=== PATIENT | female | born 1960 | race Caucasian/White ===

== ENCOUNTER → 2019-03-10 08:21 | Outpatient (CLI) | payer BC, OTHER, SELFPAY ==
--- NOTE | 2019-03-10 | DI.MG.S_ITS ---
BILATERAL DIGITAL SCREENING MAMMOGRAM 3D/2D WITH CAD WITH AUGMENTATION: 03/10/2019 CLINICAL: Routine screening. Comparison is made to exams dated: 02/10/2018 mammogram, 01/31/2017 mammogram, and 01/12/2016 mammogram - [facility]. There are scattered fibroglandular elements in both breasts. Current study was also evaluated with a Computer Aided Detection (CAD) system. Bilateral breast implants are stable. No significant masses, calcifications, or other findings are seen in either breast. There has been no significant interval change. IMPRESSION: NEGATIVE There is no mammographic evidence of malignancy. A 1 year screening mammogram is recommended. This exam was interpreted at Station ID: [id number]. NOTE: For mammograms, a report in lay terms will be sent to the patient. Approximately 15% of breast malignancies will not be visualized mammographically. In the management of a palpable breast mass, a negative mammogram must not discourage biopsy of a clinically suspicious lesion. Electronically Signed By: Kate loo/sravanthi:03/10/2019 09:21:48 letter sent: Normal Exam ACR BI-RADS Category 1: Negative [id number]
== END ==
PROVIDERS: PCP Family Medicine; Visit Provider Family Medicine
DX: Z12.31 Encounter for screening mammogram for malignant neoplasm of breast (principal)
CPT/HCPCS: 77063; 77067

== ENCOUNTER 2019-04-29 07:19 | Emergency (ER) | payer BC, OTHER, SELFPAY ==
[2019-04-29 07:25] VITALS: BP 139/75; PULSE 74; RESP 16; TEMP 36.4; O2SAT 99; BMI 23.3
--- NOTE | 2019-04-29 07:26 | ED.UPPEXIN ---
HPI - Extremity Injury (Upper) General Chief Complaint: Extremity Injury, Upper Stated Complaint: fell and heard something pop in right wrist Time Seen by Provider: 04/29/19 07:26 Source: patient Mode of arrival: ambulatory Limitations: no limitations History of Present Illness HPI narrative: 58-year-old female brought herself to the emergency department for right wrist pain. Patient was walking up an incline she fell backwards on an outstretched hand. She cut herself with the right hand. She had pain felt a little pop. She has continued to have pain at the wrist itself. No numbness, no tingling or weakness. Patient denies any other injuries. Patient states this happened this morning. She denies any prior surgical history. Primary care's duty she ate. She does not smoke tobacco, occasional alcohol, none today, no illicit. Related Data Previous Rx's Medication Instructions Recorded chlorhexidine gluconate [Paroex 10 ml PO QID #473 10/29/17 Oral Rinse] ibuprofen 200 mg PO SEE INSTRUCTIONS #1 tab 10/29/17 penicillin V potassium 500 mg PO TID #42 tab 10/29/17 Allergies Allergy/AdvReac Type Severity Reaction Status Date / Time No Known Drug Allergies Allergy Verified 04/29/19 07:25 Review of Systems Musculoskeletal Reports arthralgias (r wrist), Denies muscle weakness, Denies numbness and Denies tingling Integumentary/Breasts Reports erythema, Reports skin swelling, Denies unusual bruising and Denies wounds Neurologic Denies numbness and Denies tingling PFSH Social History Smoking Status: Never smoker Social History (Updated 04/29/19 @ 07:34 by Sonia Hernandez DO) Smoking Status: Never smoker alcohol intake: current substance use type: does not use Exam Narrative Exam Narrative: GENERAL: Alert and oriented x three, well-nourished, well-appearing female in mild distress HEENT: Head normocephalic, atraumatic, EOMI, pupils reactive, face symmetric, moist mucous membranes NECK: Supple, full range of motion CARDIOVASCULAR: Regular rate and rhythm without murmurs, rubs or gallops. RESPIRATORY: Breath sounds equal bilaterally, no wheezes rales or rhonchi. ABDOMEN: Soft, nontender. Normoactive bowel sounds all 4 quadrants. No guarding or rebound, rigidity, no mass : No CVA tenderness BACK: No cervical, thoracic or lumbar vertebral point tenderness. Patient has normal range of motion. Patient's gait is normal. Muscle strength is 5/5 in upper and lower extremities EXTREMITIES: Normal range of motion of the right upper extremity except for the wrist, patient has tenderness over the wrist itself with ulnar and radial side. There is some slight swelling on the radial side. Patient does not have any bony tenderness of the fingers or metacarpals, no tenderness of the proximal forearm, elbow, humerus or shoulder. Patient has normal sensation throughout 2+ radial pulse. Cap refills less than 2 seconds in all 5 fingers with normal sensation in move, no clubbing. Neurovascularly intact NEUROLOGICAL: Cranial nerves II through XII grossly intact. Moving all extremities SKIN: Warm, dry, no petechiae, no rashes or lesions. Initial Vital Signs Initial Vital Signs: Vital Signs Temperature 97.6 F 04/29/19 07:25 Pulse Rate 74 04/29/19 07:25 Respiratory Rate 16 04/29/19 07:25 Blood Pressure 139/75 04/29/19 07:25 Pulse Oximetry 99 04/29/19 07:25 Course Orders Ordered: ED Orders 04/29/19 07:26 XR wrist RT min 3V Stat Vital Signs - 8 hr 04/29/19 07:25 Temperature 97.6 F Pulse Rate 74 Respiratory Rate 16 Blood Pressure 139/75 Pulse Oximetry 99 MDM - Extremity Injury (Upper) Imaging Data Right wrist x-ray: Radiologist's impression: [address] [address] XRay Report Signed Patient: Dee House [facility]#: [id number] : 1960Acct:[id number] Age/Sex: 58 / FDate of Service: 04/29/19 Loc: ED Accession Number: [id number] Procedure: XR wrist RT min 3V Ordering Provider: Sonia Hernandez D.O. PROCEDURE: XR WRIST RT MIN 3V INDICATIONS: right wrist pain, fall FOOSH TECHNIQUE: 4 views of the wrist were acquired. COMPARISON: None. FINDINGS: Bones: No fractures or dislocations. No suspicious bony lesions. Scaphoid view: Scaphoid appears intact. Soft tissues: No suspicious soft tissue calcifications. IMPRESSION: No fracture or dislocation. If clinical symptoms persist or clinical suspicion for pathology is high, a repeat examination in 7-10 days, or advanced imaging such as CT or MRI is suggested for further evaluation. Dictated by: Sebas Gill M.D. on 04/29/2019 at 8:01 Approved by: Sebas Gill M.D. on 04/29/2019 at 8:05 [facility] Narrative Medical decision making narrative: Patient has some tenderness over the distal radius, she has a little bit of swelling. X-ray was negative. Patient was placed in Velcro splint and asked to follow up if she continues to have pain. Discussed she likely just has a sprain but if her symptoms are not resolving she needs repeat imaging in 7-10 days to evaluate for any fracture. Patient is comfortable with the plan. Discussed she can do ibuprofen and/or Tylenol is patent. And to allow pain to dictate her activity. Discharge Plan Departure Patient Disposition: Home Clinical Impression: Right wrist sprain Qualifiers: Encounter type: initial encounter Qualified Code(s): S63.501A - Unspecified sprain of right wrist, initial encounter Instructions: DI for Wrist Sprain Activity Restrictions/Additional Instructions: Follow up with your primary care or orthopedic surgeon in the next 7-10 days for recheck if you are continuing to have symptoms. Your x-ray does not show a clear fracture today, if you continued have pain I would recommend repeat imaging in 7-10 days. Sometimes there can be small fractures that are not visualized until the bone starts to heal. If your symptoms are totally resolved you do not have to continue to wear the splint. You may take ibuprofen up to 800 mg every 8 hours as needed for pain, he may take Tylenol with or instead of up to a 1000 mg every 8 hours. Splint Care: Keep splint clean and dry. Elevated affected body part to decrease swelling. OK to use ice pack on the affected body part. Use for 15-20 minutes each time, for 5-6x per day. If you develop worsening pain, numbness, tingling, discoloration of the affected body part, loosen the splint by loosening the HILARY wrap, and either see your doctor for an urgent re-assessment, or return to the Emergency Department. Return to the Emergency Department for any new or worsening symptoms. Prescriptions: No Action penicillin V potassium 500 MG tablet 500 mg PO TID Qty: 42 RF: 0 ibuprofen 200 MG tablet 200 mg PO SEE INSTRUCTIONS Qty: 1 RF: 0 chlorhexidine gluconate [Paroex Oral Rinse] 473 ML mouthwash 10 ml PO QID Qty: 473 RF: 0 Referrals: Clement Perkins MD [Physician] - Karis Murray DO [Primary Care Provider] -
--- NOTE | 2019-04-29 07:29 | PC.NURSE ---
Pt given ice pack. Denies need for pain medications at this time.
--- NOTE | 2019-04-29 07:31 | ED_ITS ---
HPI - Extremity Injury (Upper) General Chief Complaint: Extremity Injury, Upper Stated Complaint: fell and heard something pop in right wrist Time Seen by Provider: 04/29/19 07:26 Source: patient Mode of arrival: ambulatory Limitations: no limitations History of Present Illness HPI narrative: 58-year-old female brought herself to the emergency department for right wrist pain. Patient was walking up an incline she fell backwards on an outstretched hand. She cut herself with the right hand. She had pain felt a little pop. She has continued to have pain at the wrist itself. No numbness, no tingling or weakness. Patient denies any other injuries. Patient states this happened this morning. She denies any prior surgical history. Primary care's duty she ate. She does not smoke tobacco, occasional alcohol, none today, no illicit. Related Data Previous Rx's Medication Instructions Recorded chlorhexidine gluconate [Paroex 10 ml PO QID #473 10/29/17 Oral Rinse] ibuprofen 200 mg PO SEE INSTRUCTIONS #1 tab 10/29/17 penicillin V potassium 500 mg PO TID #42 tab 10/29/17 Allergies Allergy/AdvReac Type Severity Reaction Status Date / Time No Known Drug Allergies Allergy Verified 04/29/19 07:25 Review of Systems Musculoskeletal Reports arthralgias (r wrist), Denies muscle weakness, Denies numbness and Denies tingling Integumentary/Breasts Reports erythema, Reports skin swelling, Denies unusual bruising and Denies wou nds Neurologic Denies numbness and Denies tingling PFSH Social History Smoking Status: Never smoker Social History (Updated 04/29/19 @ 07:34 by Sonia Hernandez DO) Smoking Status: Never smoker alcohol intake: current substance use type: does not use Exam Narrative Exam Narrative: GENERAL: Alert and oriented x three, well-nourished, well- appearing female in mild distress HEENT: Head normocephalic, atraumatic, EOMI, pupils reactive, face symmetric, moist mucous membranes NECK: Supple, full range of motion CARDIOVASCULAR: Regular rate and rhythm without murmurs, rubs or gallops. RESPIRATORY: Breath sounds equal bilaterally, no wheezes rales or rhonchi. ABDOMEN: Soft, nontender. Normoactive bowel sounds all 4 quadrants. No guarding or rebound, rigidity, no mass : No CVA tenderness BACK: No cervical, thoracic or lumbar vertebral point tenderness. Patient has normal range of motion. Patient's gait is normal. Muscle strength is 5/5 in upper and lower extremities EXTREMITIES: Normal range of motion of the right upper extremity except for the wrist, patient has tenderness over the wrist itself with ulnar and radial side. There is some slight swelling on the radial side. Patient does not have any bony tenderness of the fingers or metacarpals, no tenderness of the proximal forearm, elbow, humerus or shoulder. Patient has normal sensation throughout 2+ radial pulse. Cap refills less than 2 seconds in all 5 fingers with normal sensation in move, no clubbing. Neurovascularly intact NEUROLOGICAL: Cranial nerves II through XII grossly intact. Moving all extremities SKIN: Warm, dry, no petechiae, no rashes or lesions. Initial Vital Signs Initial Vital Signs: Vital Signs Temperature 97.6 F 04/29/19 07:25 Pulse Rate 74 04/29/19 07:25 Respiratory Rate 16 04/29/19 07:25 Blood Pressure 139/75 04/29/19 07:25 Pulse Oximetry 99 04/29/19 07:25 Course Orders Ordered: ED Orders 04/29/19 07:26 XR wrist RT min 3V Stat Vital Signs - 8 hr 04/29/19 07:25 Temperature 97.6 F Pulse Rate 74 Respiratory Rate 16 Blood Pressure 139/75 Pulse Oximetry 99 MDM - Extremity Injury (Upper) Imaging Data Right wrist x-ray: Radiologist's impression: [address] [address] XRay Report Signed Patient: Dee House [facility]#: [id number] : 1960Acct:[id number] Age/Sex: 58 / FDate of Service: 04/29/19 Loc: ED Accession Number: [id number] Procedure: XR wrist RT min 3V Ordering Provider: Sonia Hernandez D.O. PROCEDURE: XR WRIST RT MIN 3V INDICATIONS: right wrist pain, fall FOOSH TECHNIQUE: 4 views of the wrist were acquired. COMPARISON: None. FINDINGS: Bones: No fractures or dislocations. No suspicious bony lesions. Scaphoid view: Scaphoid appears intact. Soft tissues: No suspicious soft tissue calcifications. IMPRESSION: No fracture or dislocation. If clinical symptoms persist or clinical suspicion for pathology is high, a repeat examination in 7-10 days, or advanced imaging such as CT or MRI is suggested for further evaluation. Dictated by: Sebas Gill M.D. on 04/29/2019 at 8:01 Approved by: Sebas Gill M.D. on 04/29/2019 at 8:05 [facility] Narrative Medical decision making narrative: Patient has some tenderness over the distal radius, she has a little bit of swelling. X-ray was negative. Patient was placed in Velcro splint and asked to follow up if she continues to have pain. Discussed she likely just has a sprain but if her symptoms are not resolving she needs repeat imaging in 7-10 days to evaluate for any fracture. Patient is comfortable with the plan. Discussed she can do ibuprofen and/or Tylenol is patent. And to allow pain to dictate her activity. Discharge Plan Departure Patient Disposition: Home Clinical Impression: Right wrist sprain Qualifiers: Encounter type: initial encounter Qualified Code(s): S63.501A - Unspecified sprain of right wrist, initial encounter Instructions: DI for Wrist Sprain Activity Restrictions/Additional Instructions: Follow up with your primary care or orthopedic surgeon in the next 7-10 days for recheck if you are continuing to have symptoms. Your x-ray does not show a clear fracture today, if you continued have pain I would recommend repeat imaging in 7-10 days. Sometimes there can be small fractures that are not visualized until the bone starts to heal. If your symptoms are totally resolved you do not have to continue to wear the splint. You may take ibuprofen up to 800 mg every 8 hours as needed for pain, he may take Tylenol with or instead of up to a 1000 mg every 8 hours. Splint Care: Keep splint clean and dry. Elevated affected body part to decrease swelling. OK to use ice pack on the affected body part. Use for 15-20 minutes each time, for 5-6x per day. If you develop worsening pain, numbness, tingling, discoloration of the affected body part, loosen the splint by loosening the HILARY wrap, and either see your doctor for an urgent re-assessment, or return to the Emergency Department. Return to the Emergency Department for any new or worsening symptoms. Prescriptions: No Action penicillin V potassium 500 MG tablet 500 mg PO TID Qty: 42 RF: 0 ibuprofen 200 MG tablet 200 mg PO SEE INSTRUCTIONS Qty: 1 RF: 0 chlorhexidine gluconate [Paroex Oral Rinse] 473 ML mouthwash 10 ml PO QID Qty: 473 RF: 0 Referrals: Clement Perkins MD [Physician] - Karis Murray DO [Primary Care Provider] -
== END 2019-04-29 08:14 | disposition home or self-care (01) ==
PROVIDERS: Emergency Provider Emergency Medicine; PCP Family Medicine
DX: S63.501A Unspecified sprain of right wrist, initial encounter (principal); W19.XXXA Unspecified fall, initial encounter
CPT/HCPCS: 29260; 73110; 99282; 99283

== ENCOUNTER → 2019-05-07 09:28 | Outpatient (CLI) | payer BC, OTHER, SELFPAY ==
--- NOTE | 2019-05-07 | DI.RAD.S_ITS ---
PROCEDURE: XR WRIST RT MIN 3V INDICATIONS: FOLLOW UP XRAY ON RIGHT WRIST TECHNIQUE: 4 views of the wrist were acquired. COMPARISON: [facility], CR, XR WRIST RT MIN 3V, 04/29/2019, 7:24. FINDINGS: Bones: No displaced fractures or articular dislocations. No suspicious bony lesions. With reference to the initial set of plain films 04/29/19 there has been a slight interval change in the appearance of the dorsal aspect of the distal radius, slightly irregular, slightly heterogeneous along the trabecular margins to the degree that a nondisplaced healing fracture is suspected. Scaphoid view: No trauma to the scaphoid is found. Soft tissues: No suspicious soft tissue calcifications. IMPRESSION: From the original trauma plain films 04/29/19 the dorsal aspect of the distal radius appears slightly irregular but not depressed or displaced in any fashion. Therefore, a slight fracture of the trabecula with healing of bone bruising is suspected based on the imaging findings changes, but no displaced fracture is present. MR scanning provides the most accurate method for detecting hidden fractures and bone bruising. However, given the absence of any malalignment proceeding to MR scanning is not recommended unless clinically indicated otherwise. For example, ligamentous injury is undetectable with MR scanning but would not be visible by plain film imaging. Note: Findings were called to the ordering health care providers office. This report will be also faxed immediately upon its completion at time of this dictation. Dictated by: Hai Farr M.D. on 05/07/2019 at 10:27 Approved by: Hai Farr M.D. on 05/07/2019 at 10:38
== END ==
PROVIDERS: PCP Family Medicine; Visit Provider Family Medicine
DX: M25.531 Pain in right wrist (principal)
CPT/HCPCS: 73110

== ENCOUNTER → 2020-12-19 16:00 | Outpatient (CLI) | payer OTHER, SELFPAY ==
--- NOTE | 2020-12-19 | DI.MG.S_ITS ---
BILATERAL DIGITAL SCREENING MAMMOGRAM 3D/2D WITH CAD WITH AUGMENTATION: 12/19/2020 CLINICAL: Routine screening. Comparison is made to exams dated: 03/10/2019 mammogram, 02/10/2018 mammogram, and 01/31/2017 mammogram - [facility]. There are scattered fibroglandular elements in both breasts. Current study was also evaluated with a Computer Aided Detection (CAD) system. Bilateral breast implants are stable. No significant masses, calcifications, or other findings are seen in either breast. There has been no significant interval change. IMPRESSION: NEGATIVE There is no mammographic evidence of malignancy. A 1 year screening mammogram is recommended. This exam was interpreted at Station ID: [id number]. NOTE: For mammograms, a report in lay terms will be sent to the patient. Approximately 15% of breast malignancies will not be visualized mammographically. In the management of a palpable breast mass, a negative mammogram must not discourage biopsy of a clinically suspicious lesion. Electronically Signed By: Lm De M.D. at/sravanthi:12/19/2020 18:21:17 copy to: Jhoan Leonard M.D., [facility], ph: [phone], fax: [phone] letter sent: Normal Exam ACR BI-RADS Category 1: Negative 3341F
== END ==
PROVIDERS: PCP Registered Nurse Diabetes Educator; Referring Provider Family Medicine; Visit Provider Family Medicine
DX: Z12.31 Encounter for screening mammogram for malignant neoplasm of breast (principal)
CPT/HCPCS: 77063; 77067

== ENCOUNTER → 2021-01-05 11:02 | Outpatient (CLI) | payer OTHER, SELFPAY | PROVIDERS: PCP Registered Nurse Diabetes Educator; Visit Provider Physician Assistant | DX: N34.3 Urethral syndrome, unspecified (principal) | CPT/HCPCS: 87077; 87086; 87186 ==

== ENCOUNTER → 2021-01-13 08:16 | Outpatient (CLI) | payer OTHER, SELFPAY ==
[2021-01-13 08:52] LABS: Hematocrit 38.3 % (36-46); Hemoglobin 12.9 g/dL (12.0-16.0); Mean Corpuscular HGB Conc 33.7 % (30-36); Mean Corpuscular Volume 94.9 fL (80-100); Platelet Count 236 X10^3/uL (150-400); Red Blood Cell Count 4.04 X10^6/uL (4.0-5.2); Red Cell Distribution Width 12.3 % (11.6-14.8); White Blood Cell Count 4.8 X10^3/uL (4.5-11.0)
[2021-01-13 09:09] LABS: Alanine Aminotransferase 27 IU/L (<35); Albumin 4.5 g/dL (3.5-5.0); Albumin Globulin Ratio 1.7 (1.0-2.8); Alkaline Phosphatase 56 U/L (38-126); Aspartate Aminotransferase 37 IU/L (14-36); BUN Creatinine Ratio 15.6 (6-22); Bilirubin Total 0.3 mg/dL (0.2-1.3); Blood Urea Nitrogen 12 mg/dL (7-17); Calcium 9.5 mg/dL (8.4-10.2); Carbon Dioxide 29 mmol/L (22-32); Chloride 96 mmol/L (98-107); Cholesterol 185 mg/dL (140-199); Estimated Glomerular Filt Rate > 60.0 mL/min (>60); Globulin 2.7 g/dL (1.7-4.1); Glucose 94 mg/dL (80-110); HDL Cholesterol 97 mg/dL (40-60); HEMOLYSIS < 15 (0-50); LDL Cholesterol Calculated 80 mg/dL (<100); Potassium 4.3 mmol/L (3.4-5.1); Sodium 131 mmol/L (137-145); Total Protein 7.2 g/dL (6.3-8.2); Triglycerides 39 mg/dL (35-150)
[2021-01-13 09:37] LABS: TSH w/ Reflex to FT4 2.17 uIU/mL (0.47-4.68)
== END ==
PROVIDERS: PCP Registered Nurse Diabetes Educator; Referring Provider Registered Nurse Diabetes Educator; Visit Provider Registered Nurse Diabetes Educator
DX: Z00.00 Encounter for general adult medical examination without abnormal findings (principal); R03.0 Elevated blood-pressure reading, without diagnosis of hypertension
CPT/HCPCS: 36415; 80053; 80061; 84443; 85027

== ENCOUNTER → 2021-01-15 13:09 | Outpatient (CLI) | payer OTHER, SELFPAY ==
[2021-01-15 13:47] LABS: BUN Creatinine Ratio 23.3 (6-22); Blood Urea Nitrogen 17 mg/dL (7-17); Calcium 9.7 mg/dL (8.4-10.2); Carbon Dioxide 30 mmol/L (22-32); Chloride 97 mmol/L (98-107); Estimated Glomerular Filt Rate > 60.0 mL/min (>60); Glucose 94 mg/dL (80-110); HEMOLYSIS < 15 (0-50); Sodium 132 mmol/L (137-145)
[2021-01-15 14:42] LABS: Sodium Urine Random 27 mmol/L (30-90)
[2021-01-16 14:21] LABS: Osmolality Urine 189 mOsmol/kg (.)
== END ==
PROVIDERS: PCP Registered Nurse Diabetes Educator; Referring Provider Registered Nurse Diabetes Educator; Visit Provider Registered Nurse Diabetes Educator
DX: E87.1 Hypo-osmolality and hyponatremia (principal)
CPT/HCPCS: 36415; 80048; 83935; 84300

== ENCOUNTER → 2021-02-16 09:05 | Outpatient (CLI) | payer OTHER, SELFPAY ==
[2021-02-16 11:05] LABS: COVID19 -Nasal RAPID Negative (Negative)
== END ==
PROVIDERS: PCP Registered Nurse Diabetes Educator; Visit Provider Surgery
DX: Z20.822 Contact with and (suspected) exposure to COVID-19 (principal)
CPT/HCPCS: 87635; C9803

== ENCOUNTER 2021-02-19 07:48 | Day surgery (SDC) | payer OTHER, SELFPAY ==
[2021-02-19 08:24] VITALS: BP 170/95; PULSE 93; RESP 13; TEMP 37.1; O2SAT 100; BMI 23.6
[2021-02-19] MEDS: LACTATED RINGERS 1,000 ML 200 ML IV (08:30)
--- NOTE | 2021-02-19 09:20 | PM.HP.1 ---
History of Present Illness History of Present Illness Date Patient Seen: 02/19/21 Time Patient Seen: 09:20 Chief complaint: ARC Narrative: The patient presents for colorectal sreening. He had a previously normal colonoscopy 11 years ago. Mother had colon cancer no personal history of intestinal malignancy. On further history denies any recent gastrointestinal symptoms. No nausea, vomiting, abdominal pain, loss of appetite, unexplained weight loss, change in bowel habits, diarrhea, constipation, melena, hematochezia, or bright red blood per rectum. Patient History Medical History Chicken pox (~1964) Elevated blood pressure reading without diagnosis of hypertension Hyponatremia UTI (urinary tract infection) Wears glasses Surgical History Anesthesia History of bilateral breast implants (~1999) Family & Social History Family History Sister Cancer Mother Cancer Social History: household members spouse Tobacco & Substance use: Smoking Status Never smoker alcohol intake current alcohol intake frequency a few times a week Substance Use Type does not use Meds Home Medications and Allergies Home Medications Medication Instructions Recorded Confirmed Type No Known Home Medications 12/26/20 02/19/21 History Allergies Allergy/AdvReac Type Severity Reaction Status Date / Time No Known Drug Allergies Allergy Verified 02/19/21 08:24 Review of Systems Review of Systems ROS: Yes All systems reviewed with the patient and are negative except as otherwise documented Exam Vital Signs (past 8 hours): - 02/19/21 08:24 Temperature 98.8 F Pulse Rate 93 H Respiratory Rate 13 Blood Pressure 170/95 H Pulse Oximetry 100 Oxygen Delivery Method Room Air Narrative Exam Narrative: General-no acute distress, adult woman HEENT-moist mucous membranes, no scleral icterus Neck-supple, no lymphadenopathy Chest- non labored respirations, clear to auscultation bilaterally Cardiac-regular rate no peripheral edema Abdomen-soft, nontender nondistended Extremities-warm, well perfused Neurological-alert and oriented, no focal deficits Assessment & Plan Assessment & Plan narrative: The patient requires colorectal screening and colonoscopy is recommended. Technical details were discussed. Risks, benefits, alternatives explained. Risks including but not limited to myocardial infarction, aspiration, bleeding, pain, missed lesion, incomplete examination, need for further radiographic studies, colonic perforation, and need for major abdominal surgery were discussed. All questions were answered to their satisfaction, and they are in agreement with this plan.
[2021-02-19] MEDS: MIDAZOLAM 5 MG/5 ML VIAL IV (09:25)
[2021-02-19] MEDS: fentaNYL 250 MCG/5 ML INJ IV (09:26)
--- NOTE | 2021-02-19 09:56 | P.OP.ENDO_ITS ---
Operative Date/Time/Diagnoses Date of procedure: 02/19/21 Time of procedure: 09:56 Pre-op diagnosis: family history of colon cancer Post-op diagnosis: same Procedure & Clinicians Study performed: colonoscopy Same procedure as scheduled: Yes Indications: 60-year-old female last colonoscopy 11 years ago family history of colon cancer Surgeon: Jon Vinson Procedure Notes Procedure in detail: Medications: Conscious sedation using 7mg IV midazolam and 250mcg IV of fentanyl The history and physical was performed/updated and the patient is ASA class is 1. The procedure was discussed in detail with the patient. Potential risks complications including infection, bleeding, missed diagnosis, perforation, need for surgery, and were explained. Their questions were answered and informed consent was obtained. Patient was brought to the procedure room and placed standard monitoring equipment. The patient's vital signs were monitored continuously throughout the entire procedure. Prior to starting time-out was performed. The patient was placed in the left lateral recumbent position. Procedural sedation was administered. Examination began with a thorough inspection of the perianal area there was no evidence of fissures, fistulae, external hemorrhoids or cutaneous malignancy. The colonoscopy scope was then placed into the anal canal and was advanced to the cecum, which was identified by the ileocecal valve, the append iceal orifice and the confluence of the taenia. The scope was then slowly withdrawn examining colon thoroughly in all directions, irrigating it of any residual stool. No masses or polyps Grade 1 internal The patient tolerated the procedure well. They will be discharged once criteria are met. The prep was of good/excellent quality. The withdrawl time was 7 minutes. The sedation time [id number]. Specimen(s): none sent Complications: none Impression: Normal colonoscopy Post-procedure Recommendations: Colonscopy in 5 years Disposition: same day surgery
[2021-02-19 10:01] VITALS: BP 99/65; PULSE 68; RESP 16; TEMP 36.7; O2SAT 100
[2021-02-19 10:06] VITALS: BP 109/65; PULSE 81; RESP 16; O2SAT 99
[2021-02-19 10:12] VITALS: BP 106/64; PULSE 70; RESP 12; O2SAT 100
[2021-02-19 10:14] VITALS: BP 104/66; PULSE 62; RESP 16; TEMP 36.8; O2SAT 100
[2021-02-19 10:25] VITALS: BP 112/78; PULSE 68; RESP 14; TEMP 36.9; O2SAT 100
== END 2021-02-19 10:35 | disposition home or self-care (01) ==
PROVIDERS: PCP Registered Nurse Diabetes Educator; Referring Provider Registered Nurse Diabetes Educator; Visit Provider Surgery
PROC: 0DJD8ZZ Inspection of Lower Intestinal Tract, Via Natural or Artificial Opening Endoscopic (ICD-10-PCS; CPT 45378; principal; 2021-02-19 09:15)
DX: Z12.11 Encounter for screening for malignant neoplasm of colon (principal); Z80.0 Family history of malignant neoplasm of digestive organs; K64.0 First degree hemorrhoids
CPT/HCPCS: 45378; 99152; 99153; J2250; J3010

== ENCOUNTER → 2021-12-28 15:09 | Outpatient (CLI) | payer OTHER, SELFPAY ==
--- NOTE | 2021-12-28 | DI.MG.S_ITS ---
BILATERAL DIGITAL SCREENING MAMMOGRAM 3D/2D WITH CAD WITH AUGMENTATION: 12/28/2021 CLINICAL: Patient presents for routine screening. S/P bilateral augmentation. Comparison is made to exams dated: 12/19/2020 mammogram, 03/10/2019 mammogram, and 02/10/2018 mammogram - [facility]. There are scattered fibroglandular elements in both breasts. Current study was also evaluated with a Computer Aided Detection (CAD) system. Bilateral breast implants are stable. No significant masses, calcifications, or other findings are seen in either breast. There has been no significant interval change. IMPRESSION: NEGATIVE There is no mammographic evidence of malignancy. A 1 year screening mammogram is recommended. This exam was interpreted at Station ID: [id number]. NOTE: For mammograms, a report in lay terms will be sent to the patient. Approximately 15% of breast malignancies will not be visualized mammographically. In the management of a palpable breast mass, a negative mammogram must not discourage biopsy of a clinically suspicious lesion. Electronically Signed By: Geoff Johansen M.D., jr/sravanthi:12/28/2021 15:51:04 copy to: Jhoan GUIDRY, [facility], ph: [phone], fax: [phone] letter sent: Normal Exam ACR BI-RADS Category 1: Negative [id number]
== END ==
PROVIDERS: PCP Student in an Organized Health Care Education/Training Program; Referring Provider Student in an Organized Health Care Education/Training Program; Visit Provider Student in an Organized Health Care Education/Training Program
DX: Z12.31 Encounter for screening mammogram for malignant neoplasm of breast (principal); Z98.82 Breast implant status
CPT/HCPCS: 77063; 77067

== ENCOUNTER → 2023-01-17 08:12 | Outpatient (CLI) | payer OTHER, SELFPAY ==
--- NOTE | 2023-01-17 08:13 | DI.MG.S_ITS ---
BILATERAL DIGITAL SCREENING MAMMOGRAM 3D/2D WITH CAD WITH AUGMENTATION: 01/17/2023 CLINICAL: Routine screening. Comparison is made to exams dated: 12/28/2021 mammogram, 12/19/2020 mammogram, and 03/10/2019 mammogram - [facility]. There are scattered areas of fibroglandular density in both breasts (category b / 25%-50% glandular tissue). Current study was also evaluated with a Computer Aided Detection (CAD) system. Bilateral breast implants are stable. No significant masses, calcifications, or other findings are seen in either breast. There has been no significant interval change. IMPRESSION: NEGATIVE There is no mammographic evidence of malignancy. A 1 year screening mammogram is recommended. Based on the Tyrer Cuzick model (a risk assessment model) the patient's lifetime risk is 9.7% and her 10 year risk is 4.2%. According to the ACR, ACS, and NCCN guidelines, an annual breast MRI exam along with mammogram is recommended if the patient's lifetime risk is 20% or greater. This exam was interpreted at Station ID: [id number]. NOTE: For mammograms, a report in lay terms will be sent to the patient. Approximately 15% of breast malignancies will not be visualized mammographically. In the management of a palpable breast mass, a negative mammogram must not discourage biopsy of a clinically suspicious lesion. Electronically Signed By: Gregory soliman/sravanthi:01/17/2023 12:30:30 copy to: Jhoan GUIDRY, [facility], ph: [phone], fax: [phone] letter sent: Normal Exam ACR BI-RADS Category 1: Negative 3341F
== END ==
PROVIDERS: PCP Student in an Organized Health Care Education/Training Program; Referring Provider Student in an Organized Health Care Education/Training Program; Visit Provider Student in an Organized Health Care Education/Training Program
DX: Z12.31 Encounter for screening mammogram for malignant neoplasm of breast (principal)
CPT/HCPCS: 77063; 77067

== ENCOUNTER → 2023-10-31 14:16 | Outpatient (CLI) | payer OTHER, SELFPAY ==
[2023-10-31 17:27] LABS: Add Manual Diff / Slide Review NO; Basophils Absolute Auto 100 /uL (0-100); Basophils Percent Auto 0.8 % (0-2); Eosinophils Absolute Auto 200 /uL (0-450); Eosinophils Percent Auto 2.1 % (2-4); Hematocrit 35.7 % (36-46); Hemoglobin 12.3 g/dL (12.0-16.0); Lymphocytes Absolute Auto 2200 /uL (1100-4500); Lymphocytes Percent Auto 28.5 % (25-40); Mean Corpuscular HGB Conc 34.3 % (30-36); Mean Corpuscular Hemoglobin 32.8 PG (26-34); Mean Corpuscular Volume 95.4 fL (80-100); Monocytes Absolute Auto 500 /uL (0-900); Neutrophils Absolute Auto 4700 /uL (1500-7000); Neutrophils Percent Auto 62.6 % (50-75); Platelet Count 225 X10^3/uL (150-400); Red Blood Cell Count 3.75 X10^6/uL (4.0-5.2); Red Cell Distribution Width 12.9 % (11.6-14.8); White Blood Cell Count 7.6 X10^3/uL (4.5-11.0)
[2023-10-31 17:50] LABS: Alanine Aminotransferase 22 IU/L (<35); Albumin 4.7 g/dL (3.5-5.0); Albumin Globulin Ratio 1.7 (1.0-2.8); Alkaline Phosphatase 53 U/L (38-126); Aspartate Aminotransferase 35 IU/L (14-36); BUN Creatinine Ratio 21.9 (6-22); Bilirubin Total 0.4 mg/dL (0.2-1.3); Blood Urea Nitrogen 16 mg/dL (7-17); Calcium 9.9 mg/dL (8.4-10.2); Carbon Dioxide 31 mmol/L (22-32); Chloride 95 mmol/L (98-107); Estimated Glomerular Filt Rate > 60 mL/min (>60); Globulin 2.8 g/dL (1.7-4.1); Glucose 88 mg/dL (80-110); HEMOLYSIS < 15 (0-50); Potassium 4.2 mmol/L (3.4-5.1); Sodium 132 mmol/L (137-145); Total Protein 7.5 g/dL (6.3-8.2)
[2023-10-31 17:58] LABS: Vitamin D 25 Hydroxy (D3) 79.2 ng/mL (30.0-100.0)
[2023-10-31 18:13] LABS: TSH w/ Reflex to FT4 2.33 uIU/mL (0.47-4.68)
== END ==
PROVIDERS: PCP Family Medicine; Referring Provider Family Medicine; Visit Provider Family Medicine
DX: E87.1 Hypo-osmolality and hyponatremia (principal); L65.9 Nonscarring hair loss, unspecified
CPT/HCPCS: 36415; 80053; 82306; 84443; 85025

== ENCOUNTER → 2024-02-05 14:51 | Outpatient (CLI) | payer OTHER, SELFPAY ==
--- NOTE | 2024-02-05 | DI.MG.S_ITS ---
BILATERAL DIGITAL SCREENING MAMMOGRAM 3D/2D WITH CAD WITH AUGMENTATION: 02/05/2024 CLINICAL: Routine screening. Comparison is made to exams dated: 01/17/2023 mammogram, 12/28/2021 mammogram, 12/19/2020 mammogram, and 03/10/2019 mammogram - [facility]. There are scattered areas of fibroglandular density in both breasts (category b / 25%-50% glandular tissue). Current study was also evaluated with a Computer Aided Detection (CAD) system. Bilateral breast implants are stable. No significant masses, calcifications, or other findings are seen in either breast. There has been no significant interval change. IMPRESSION: BENIGN There is no mammographic evidence of malignancy. A 1 year screening mammogram is recommended. Based on the Tyrer Cuzick model (a risk assessment model) the patient's lifetime risk is 9.4% and her 10 year risk is 4.2%. According to the ACR, ACS, and NCCN guidelines, an annual breast MRI exam along with mammogram is recommended if the patient's lifetime risk is 20% or greater. This exam was interpreted at Station ID: [id number]. NOTE: For mammograms, a report in lay terms will be sent to the patient. Approximately 15% of breast malignancies will not be visualized mammographically. In the management of a palpable breast mass, a negative mammogram must not discourage biopsy of a clinically suspicious lesion. Electronically Signed By: Jayshree Dorado M.D., PH.D eb/penrad:02/05/2024 22:43:18 copy to: Jhoan GUIDRY, [facility], ph: [phone], fax: [phone] letter sent: Normal Exam ACR BI-RADS Category 2: Benign Finding(s) 3342P
== END ==
LOC: MAMMO 14:51
PROVIDERS: PCP Family Medicine; Referring Provider Family Medicine; Visit Provider Family Medicine
DX: Z12.31 Encounter for screening mammogram for malignant neoplasm of breast (principal); R92.323 Mammographic fibroglandular density, bilateral breasts
CPT/HCPCS: 77063; 77067

== ENCOUNTER → 2024-11-04 08:01 | Outpatient (CLI) | payer OTHER, SELFPAY ==
--- NOTE | 2024-11-04 08:02 | DI.ECHO.S_ITS ---
[facility] : : [address] : : [place] : : [id number] : : Phone: [phone] Echocardiogram Report + :Name: CORINA PETERS Study Date: 11/04/2024 Height: 60 in : :[facility] ReadingLocation: Weight: 140 lb : : Gender: Female BSA: 1.6 m2 : :: 1960 Age: 64 yrs BP: 183/103 mmHg: :Reason For Study: Hypertension : : Performed By: Military Administrative Technician Olimpia Wadsworth : :Referring: FRANCOISE RUELAS : + Interpretation Summary The left ventricle is normal in size and wall thickness. The left ventricular ejection fraction is normal. The ejection fraction is estimated to be 55-60%. The right ventricle is normal in size and function. There is mild mitral regurgitation. There is mild aortic regurgitation. There is mild tricuspid regurgitation. The right ventricular systolic pressure is estimated to be at least 41 mmHg based on an estimated right atrial pressure of 8 mm Hg. The ascending aorta is mildly enlarged. BP: 183/103 mmHg Procedure: A two-dimensional transthoracic echocardiogram with color flow and Doppler was performed. The study quality was technically adequate. There is no prior echocardiogram noted for this patient. The patient was in normal sinus rhythm during the exam. Left Ventricle: The left ventricle is normal in size and wall thickness. There is no thrombus. The ejection fraction is estimated to be 55-60%. The left ventricular ejection fraction is normal. There are no focal wall motion abnormalities. No significant diastolic dysfunction. Right Ventricle: The right ventricle is normal in size and function. Atria: The left atrium is moderately dilated. Right atrial size is normal. There is no Doppler evidence for an interatrial shunt. Mitral Valve: There is mild mitral annular calcification. There is mild mitral regurgitation. Aortic Valve: The aortic valve is trileaflet. The aortic valve opens well. The aortic valve is slightly calcified. There is mild aortic regurgitation. Tricuspid Valve: The tricuspid valve is normal. There is mild tricuspid regurgitation. The right ventricular systolic pressure is estimated to be at least 41 mmHg based on an estimated right atrial pressure of 8 mm Hg. Pulmonic Valve: The pulmonic valve is not well seen, but is grossly normal. There is a trace or physiologic amount of pulmonic regurgitation. Great Vessels: The aortic root is normal size. The ascending aorta is mildly enlarged. The aortic arch is normal in size. The IVC is of normal diameter and collapses less than 50% with a sniff. This suggests a right atrial pressure of 8 mm Hg. Pericardium/ Pleura There is no pericardial effusion. MMode/2D Measurements & Calculations LVIDd: 4.5 cm LVOT diam: 1.8 cm LVIDs: 2.8 cm Ao root diam: 3.1 cm FS: 38.3 % asc Aorta Diam: 4.0 cm EPSS: 0.79 cm Ao Arch Diam (Prox Trans): 2.8 cm IVSd: 0.76 cm LVPWd: 0.92 cm LV romero. diameter/BSA (cm/m^2): 2.8 LV sys. diameter/BSA (cm/m^2): 1.7 LA A2 area: 19.3 cm2 RA long axis: 4.9 cm LA A4 area: 23.9 cm2 RA area: 11.6 cm2 LA length (vol): 5.2 cm RA vol: 23.5 ml LA vol: 76.0 ml RA : 14.6 ml/m2 LA vol index: 47.4 ml/m2 IVC diam: 1.7 cm RVD1 (basal): 2.7 cm TAPSE: 2.6 cm Doppler Measurements & Calculations Ao V2 max: 187.7 cm/sec LVOT Max Mateusz: 145.4 cm/sec Ao V2 mean: 127.3 cm/sec LV V1 max P.5 mmHg Ao max P.1 mmHg LV V1 VTI: 32.8 cm Ao mean P.4 mmHg GIO(I,D): 2.0 cm2 Ao V2 VTI: 42.9 cm GIO(V,D): 2.1 cm2 sev ratio: 0.76 GIO indexed to BSA (cm^2/m^2): 1.3 AI P1/2t: 451.9 msec AI dec slope: 265.0 cm/sec2 MV E max mateusz: 99.8 cm/sec TR max mateusz: 289.0 cm/sec MV A max mateusz: 91.6 cm/sec TR max P.4 mmHg MV E/A: 1.1 Med Peak E' Mateusz: 9.1 cm/sec E/E' med: 11.0 Lat Peak E' Mateusz: 12.6 cm/sec E/E' lat: 7.9 E/e' average: 9.4 MV dec time: 0.17 sec SV(LVOT): 86.9 ml Reading Physician:10:10 AM
== END ==
LOC: ECHO 08:01
PROVIDERS: PCP Family Medicine; Referring Provider Family Medicine; Visit Provider Family Medicine
DX: I08.3 Combined rheumatic disorders of mitral, aortic and tricuspid valves (principal); I77.89 Other specified disorders of arteries and arterioles; I10 Essential (primary) hypertension
CPT/HCPCS: 93306

== ENCOUNTER → 2024-11-05 07:14 | Outpatient (CLI) | payer OTHER, SELFPAY ==
[2024-11-05 08:26] LABS: Add Manual Diff / Slide Review NO; Basophils Absolute Auto 100 /uL (0-100); Basophils Percent Auto 1.1 % (0-2); Eosinophils Absolute Auto 200 /uL (0-450); Eosinophils Percent Auto 3.1 % (2-4); Hemoglobin 12.7 g/dL (12.0-16.0); Lymphocytes Absolute Auto 2600 /uL (1100-4500); Lymphocytes Percent Auto 37.8 % (25-40); Mean Corpuscular HGB Conc 34.3 % (30-36); Mean Corpuscular Volume 96.2 fL (80-100); Monocytes Absolute Auto 500 /uL (0-900); Monocytes Percent Auto 7.5 % (3-14); Neutrophils Absolute Auto 3500 /uL (1500-7000); Neutrophils Percent Auto 50.5 % (50-75); Platelet Count 249 X10^3/uL (150-400); Red Blood Cell Count 3.85 X10^6/uL (4.0-5.2); Red Cell Distribution Width 13.6 % (11.6-14.8); White Blood Cell Count 6.9 X10^3/uL (4.5-11.0)
[2024-11-05 08:59] LABS: Alanine Aminotransferase 31 IU/L (<35); Albumin 4.8 g/dL (3.5-5.0); Albumin Globulin Ratio 1.6 (1.0-2.8); Alkaline Phosphatase 69 U/L (38-126); Aspartate Aminotransferase 43 IU/L (14-36); BUN Creatinine Ratio 18.9 (6-22); Bilirubin Total 0.3 mg/dL (0.2-1.3); Blood Urea Nitrogen 14 mg/dL (7-17); Calcium 9.4 mg/dL (8.4-10.2); Carbon Dioxide 25 mmol/L (22-32); Chloride 98 mmol/L (98-107); Cholesterol 226 mg/dL (140-199); Estimated Glomerular Filt Rate > 60 mL/min (>60); Glucose 97 mg/dL (80-110); HEMOLYSIS < 15 (0-50); Potassium 4.7 mmol/L (3.4-5.1); Sodium 130 mmol/L (137-145); Total Protein 7.8 g/dL (6.3-8.2); Triglycerides 59 mg/dL (35-150)
[2024-11-05 09:07] LABS: HDL Cholesterol 133 mg/dL (40-60); LDL Cholesterol Calculated 81 mg/dL (<100)
== END ==
PROVIDERS: PCP Family Medicine; Referring Provider Family Medicine; Visit Provider Family Medicine
DX: I10 Essential (primary) hypertension (principal); E87.1 Hypo-osmolality and hyponatremia; Z79.899 Other long term (current) drug therapy
CPT/HCPCS: 36415; 80053; 80061; 85025

== ENCOUNTER → 2024-12-27 07:10 | Outpatient (CLI) | payer OTHER, SELFPAY ==
[2024-12-27 08:03] LABS: Sodium 132 mmol/L (137-145)
[2024-12-27 08:17] LABS: Sodium Urine Random 66 mmol/L (30-90)
[2024-12-27 08:37] LABS: Cortisol AM (Before 10AM) 15.7 ug/dL (4.46-22.7)
[2024-12-28 13:39] LABS: Osmolality Urine 440 mOsmol/kg (.)
[2024-12-28 13:39] LABS: Osmolality, Serum 277 mOsmol/kg (280-301)
[2024-12-29 10:25] LABS: Thyroid Stimulating Hormone 3.43 uIU/mL (0.47-4.68)
== END ==
PROVIDERS: PCP Family Medicine; Referring Provider Family Medicine; Visit Provider Family Medicine
DX: E87.1 Hypo-osmolality and hyponatremia (principal)
CPT/HCPCS: 36415; 82533; 83930; 83935; 84295; 84300; 84443

== ENCOUNTER → 2025-02-07 14:45 | Outpatient (CLI) | payer OTHER, SELFPAY | PROVIDERS: PCP Family Medicine; Visit Provider Nurse Practitioner Family | DX: R30.0 Dysuria (principal) | CPT/HCPCS: 87077; 87086; 87186 ==

== ENCOUNTER → 2025-02-09 16:40 | Outpatient (CLI) | payer OTHER, SELFPAY ==
--- NOTE | 2025-02-09 16:41 | DI.MG.S_ITS ---
MM screening mammo implant BI: 02/09/2025. BI-RADS: 2 CLINICAL: 64-year old female for bilateral screening mammogram. Tyrer-Cuzick lifetime risk of 6.0%. No personal or first-degree family history of breast cancer. The patient has bilateral implants. PRIOR EXAMS 02/05/2024, 01/17/2023, 12/28/2021, 12/19/2020, 03/10/2019, 02/10/2018, 01/31/2017, 01/12/2016. MAMMOGRAPHY TECHNIQUE: 2D and 3D (tomosynthesis) digital mammographic views obtained, with additional images as needed for full coverage. Current study was also evaluated with a Computer Aided Detection (CAD) system. DENSITY B. There are scattered areas of fibroglandular density. IMPLANTS Breast implants present. MAMMOGRAPHY FINDINGS Bilateral: There are no suspicious masses, calcifications, or other findings in the breast. IMPRESSION: * No evidence of malignancy with benign findings. RECOMMENDATIONS Bilateral * Annual screening mammography. OVERALL ASSESSMENT CATEGORY BI-RADS-2: Benign. The [employer] recommends annual screening mammography beginning at age 40 for women with average risk of breast cancer. ELECTRONICALLY SIGNED: Johana Lundy M.D. on 02/10/2025 at 08:35:26 AM PT Interpreting Station ID: [id number]
== END ==
LOC: MAMMO 16:40
PROVIDERS: PCP Family Medicine; Referring Provider Family Medicine; Visit Provider Family Medicine
DX: Z12.31 Encounter for screening mammogram for malignant neoplasm of breast (principal); Z98.82 Breast implant status
CPT/HCPCS: 77063; 77067